=== PATIENT | female | born 1955 | race Caucasian/White ===

== ENCOUNTER → 2018-06-26 06:32 | Outpatient (CLI) | payer OTHER, SELFPAY ==
--- NOTE | 2018-06-26 | DI.MG.S_ITS ---
BILATERAL DIGITAL SCREENING MAMMOGRAM 3D/2D WITH CAD: 06/26/2018 CLINICAL: Routine screening. Family history of breast cancer. Comparison is made to exams dated: 05/12/2017 mammogram, 05/10/2016 mammogram, and 04/11/2015 mammogram - [facility]. There are scattered fibroglandular elements in both breasts. Current study was also evaluated with a Computer Aided Detection (CAD) system. No significant masses, calcifications, or other findings are seen in either breast. There has been no significant interval change. IMPRESSION: NEGATIVE There is no mammographic evidence of malignancy. A 1 year screening mammogram is recommended. This exam was interpreted at Station ID: [id number]. NOTE: For mammograms, a report in lay terms will be sent to the patient. Approximately 15% of breast malignancies will not be visualized mammographically. In the management of a palpable breast mass, a negative mammogram must not discourage biopsy of a clinically suspicious lesion. Electronically Signed By: Ana Cristina espinoza/ayanna:06/26/2018 08:59:49 letter sent: Normal Exam ACR BI-RADS Category 1: Negative 3341F
[2018-06-26 09:36] LABS: Cholesterol 236 mg/dL (140-199); Glucose 90 mg/dL (80-110); HDL Cholesterol 86 mg/dL (40-60); LDL Cholesterol Calculated 132 mg/dL (<100); Triglycerides 88 mg/dL (35-150)
== END ==
PROVIDERS: Visit Provider Family Medicine
DX: Z12.31 Encounter for screening mammogram for malignant neoplasm of breast (principal); Z80.3 Family history of malignant neoplasm of breast; Z13.220 Encounter for screening for lipoid disorders; Z13.1 Encounter for screening for diabetes mellitus
CPT/HCPCS: 36415; 77063; 77067; 80061; 82947

== ENCOUNTER → 2019-06-29 10:39 | Outpatient (CLI) | payer OTHER, SELFPAY ==
--- NOTE | 2019-06-29 | DI.MG.S_ITS ---
BILATERAL DIGITAL SCREENING MAMMOGRAM 3D/2D WITH CAD: 06/29/2019 CLINICAL: Routine screening. Family history of breast cancer. Comparison is made to exams dated: 06/26/2018 mammogram, 05/12/2017 mammogram, and 05/10/2016 mammogram - [facility]. There are scattered fibroglandular elements in both breasts. Current study was also evaluated with a Computer Aided Detection (CAD) system. No significant masses, calcifications, or other findings are seen in either breast. There has been no significant interval change. IMPRESSION: NEGATIVE There is no mammographic evidence of malignancy. A 1 year screening mammogram is recommended. This exam was interpreted at Station ID: [id number]. NOTE: For mammograms, a report in lay terms will be sent to the patient. Approximately 15% of breast malignancies will not be visualized mammographically. In the management of a palpable breast mass, a negative mammogram must not discourage biopsy of a clinically suspicious lesion. Electronically Signed By: Steven matthews/ayanna:06/29/2019 16:44:08 letter sent: Normal Exam ACR BI-RADS Category 1: Negative 3341F
== END ==
PROVIDERS: PCP Family Medicine; Visit Provider Family Medicine
DX: Z12.31 Encounter for screening mammogram for malignant neoplasm of breast (principal); Z80.3 Family history of malignant neoplasm of breast
CPT/HCPCS: 77063; 77067

== ENCOUNTER → 2020-08-18 10:48 | Outpatient (CLI) | payer OTHER, SELFPAY ==
--- NOTE | 2020-08-18 | DI.MG.S_ITS ---
BILATERAL DIGITAL SCREENING MAMMOGRAM 3D/2D WITH CAD: 08/18/2020 CLINICAL: Routine screening. Family history of breast cancer. Comparison is made to exams dated: 06/29/2019 mammogram, 06/26/2018 mammogram, and 05/12/2017 mammogram - [facility]. There are scattered fibroglandular elements in both breasts. Current study was also evaluated with a Computer Aided Detection (CAD) system. No significant masses, calcifications, or other findings are seen in either breast. There has been no significant interval change. Of note, there is suboptimal positioning in the bilateral craniocaudal projection(s) secondary to patient inability to be adequately positioned. However, the best possible images were obtained. IMPRESSION: NEGATIVE There is no mammographic evidence of malignancy. A 1 year screening mammogram is recommended. This exam was interpreted at Station ID: [id number]. NOTE: For mammograms, a report in lay terms will be sent to the patient. Approximately 15% of breast malignancies will not be visualized mammographically. In the management of a palpable breast mass, a negative mammogram must not discourage biopsy of a clinically suspicious lesion. Electronically Signed By: Steven Morales M.D. aty/:08/28/2020 11:03:58 letter sent: Normal Exam ACR BI-RADS Category 1: Negative 3341F
== END ==
PROVIDERS: PCP Family Medicine; Referring Provider Family Medicine; Visit Provider Family Medicine
DX: Z12.31 Encounter for screening mammogram for malignant neoplasm of breast (principal); Z80.3 Family history of malignant neoplasm of breast
CPT/HCPCS: 77063; 77067

== ENCOUNTER → 2021-04-19 07:04 | Outpatient (CLI) | payer OTHER, SELFPAY ==
[2021-04-19 08:48] LABS: Cholesterol 254 mg/dL (140-199); Glucose 104 mg/dL (80-110); HDL Cholesterol 80 mg/dL (40-60); LDL Cholesterol Calculated 159 mg/dL (<100); Triglycerides 75 mg/dL (35-150)
== END ==
PROVIDERS: PCP Family Medicine; Referring Provider Family Medicine; Visit Provider Family Medicine
DX: Z13.1 Encounter for screening for diabetes mellitus (principal); Z13.220 Encounter for screening for lipoid disorders
CPT/HCPCS: 36415; 80061; 82947

== ENCOUNTER → 2021-08-24 09:55 | Outpatient (CLI) | payer OTHER, SELFPAY ==
--- NOTE | 2021-08-24 | DI.MG.S_ITS ---
BILATERAL DIGITAL SCREENING MAMMOGRAM 3D/2D WITH CAD: 08/24/2021 CLINICAL: Routine screening. Family history of breast cancer. Comparison is made to exams dated: 08/18/2020 mammogram, 06/29/2019 mammogram, and 06/26/2018 mammogram - [facility]. There are scattered fibroglandular elements in both breasts. Current study was also evaluated with a Computer Aided Detection (CAD) system. No significant masses, calcifications, or other findings are seen in either breast. There has been no significant interval change. IMPRESSION: NEGATIVE There is no mammographic evidence of malignancy. A 1 year screening mammogram is recommended. This exam was interpreted at Station ID: [id number]. NOTE: For mammograms, a report in lay terms will be sent to the patient. Approximately 15% of breast malignancies will not be visualized mammographically. In the management of a palpable breast mass, a negative mammogram must not discourage biopsy of a clinically suspicious lesion. Electronically Signed By: Jose Luis Neal acr/penrad:08/24/2021 12:01:10 letter sent: Normal Exam ACR BI-RADS Category 1: Negative 3341F
== END ==
PROVIDERS: PCP Family Medicine; Referring Provider Family Medicine; Visit Provider Family Medicine
DX: Z12.31 Encounter for screening mammogram for malignant neoplasm of breast (principal)
CPT/HCPCS: 77063; 77067

== ENCOUNTER → 2022-08-26 08:14 | Outpatient (CLI) | payer MEDICARE, OTHER, SELFPAY ==
--- NOTE | 2022-08-26 | DI.MG.S_ITS ---
BILATERAL DIGITAL SCREENING MAMMOGRAM 3D/2D WITH CAD: 08/26/2022 CLINICAL: Routine screening. Family history of breast cancer. Comparison is made to exams dated: 08/24/2021 mammogram, 08/18/2020 mammogram, and 06/29/2019 mammogram - [facility]. There are scattered areas of fibroglandular density in both breasts (category b / 25%-50% glandular tissue). Current study was also evaluated with a Computer Aided Detection (CAD) system. No significant masses, calcifications, or other findings are seen in either breast. There has been no significant interval change. IMPRESSION: NEGATIVE There is no mammographic evidence of malignancy. A 1 year screening mammogram is recommended. Based on the Tyrer Cuzick model (a risk assessment model) the patient's lifetime risk is 7.0% and her 10 year risk is 3.4%. According to the ACR, ACS, and NCCN guidelines, an annual breast MRI exam along with mammogram is recommended if the patient's lifetime risk is 20% or greater. This exam was interpreted at Station ID: [id number]. NOTE: For mammograms, a report in lay terms will be sent to the patient. Approximately 15% of breast malignancies will not be visualized mammographically. In the management of a palpable breast mass, a negative mammogram must not discourage biopsy of a clinically suspicious lesion. Electronically Signed By: Ana Cristina espinoza/ayanna:08/26/2022 12:49:43 copy to: ROLANDO RAMIREZ letter sent: Normal Exam ACR BI-RADS Category 1: Negative 3341F
== END ==
PROVIDERS: PCP Nurse Practitioner; Referring Provider Family Medicine; Visit Provider Family Medicine
DX: Z12.31 Encounter for screening mammogram for malignant neoplasm of breast (principal); Z80.3 Family history of malignant neoplasm of breast
CPT/HCPCS: 77063; 77067

== ENCOUNTER → 2023-02-25 08:14 | Outpatient (CLI) | payer MEDICARE, OTHER, SELFPAY ==
[2023-02-25 10:07] LABS: Add Manual Diff / Slide Review NO; Basophils Absolute Auto 100 /uL (0-100); Eosinophils Absolute Auto 100 /uL (0-450); Eosinophils Percent Auto 2.2 % (2-4); Hematocrit 39.9 % (36-46); Hemoglobin 13.3 g/dL (12.0-16.0); Lymphocytes Absolute Auto 1500 /uL (1100-4500); Lymphocytes Percent Auto 26.4 % (25-40); Mean Corpuscular HGB Conc 33.3 % (30-36); Mean Corpuscular Hemoglobin 30.4 PG (26-34); Mean Corpuscular Volume 91.3 fL (80-100); Monocytes Absolute Auto 400 /uL (0-900); Monocytes Percent Auto 7.6 % (3-14); Neutrophils Absolute Auto 3500 /uL (1500-7000); Neutrophils Percent Auto 62.8 % (50-75); Platelet Count 289 X10^3/uL (150-400); Red Blood Cell Count 4.37 X10^6/uL (4.0-5.2); Red Cell Distribution Width 13.9 % (11.6-14.8); White Blood Cell Count 5.6 X10^3/uL (4.5-11.0)
[2023-02-25 11:09] LABS: Alanine Aminotransferase 16 IU/L (<35); Albumin 4.7 g/dL (3.5-5.0); Albumin Globulin Ratio 1.7 (1.0-2.8); Alkaline Phosphatase 61 U/L (38-126); Aspartate Aminotransferase 29 IU/L (14-36); BUN Creatinine Ratio 28.8 (6-22); Bilirubin Total 1.3 mg/dL (0.2-1.3); Blood Urea Nitrogen 19 mg/dL (7-17); Calcium 10.3 mg/dL (8.4-10.2); Carbon Dioxide 29 mmol/L (22-32); Chloride 99 mmol/L (98-107); Cholesterol 262 mg/dL (140-199); Estimated Glomerular Filt Rate > 60 mL/min (>60); Globulin 2.7 g/dL (1.7-4.1); Glucose 99 mg/dL (80-110); HDL Cholesterol 104 mg/dL (40-60); HEMOLYSIS < 15 (0-50); LDL Cholesterol Calculated 138 mg/dL (<100); Potassium 4.6 mmol/L (3.4-5.1); Sodium 136 mmol/L (137-145); Total Protein 7.4 g/dL (6.3-8.2); Triglycerides 100 mg/dL (35-150)
== END ==
PROVIDERS: PCP Nurse Practitioner; Referring Provider Family Medicine; Visit Provider Family Medicine
DX: E78.5 Hyperlipidemia, unspecified (principal); N89.8 Other specified noninflammatory disorders of vagina; Z79.899 Other long term (current) drug therapy; R73.9 Hyperglycemia, unspecified
CPT/HCPCS: 36415; 80053; 80061; 85025

== ENCOUNTER → 2023-08-28 09:02 | Outpatient (CLI) | payer MEDICARE, OTHER, SELFPAY ==
--- NOTE | 2023-08-28 | DI.MG.S_ITS ---
BILATERAL DIGITAL SCREENING MAMMOGRAM 3D/2D WITH CAD: 08/28/2023 CLINICAL: Routine screening. Family history of breast cancer. Comparison is made to exams dated: 08/26/2022 mammogram, 08/18/2020 mammogram, and 08/24/2021 mammogram - [facility]. There are scattered areas of fibroglandular density in both breasts (category b / 25%-50% glandular tissue). Current study was also evaluated with a Computer Aided Detection (CAD) system. No significant masses, calcifications, or other findings are seen in either breast. There has been no significant interval change. IMPRESSION: NEGATIVE There is no mammographic evidence of malignancy. A 1 year screening mammogram is recommended. Based on the Tyrer Cuzick model (a risk assessment model) the patient's lifetime risk is 6.7% and her 10 year risk is 3.4%. According to the ACR, ACS, and NCCN guidelines, an annual breast MRI exam along with mammogram is recommended if the patient's lifetime risk is 20% or greater. This exam was interpreted at Station ID: [id number]. NOTE: For mammograms, a report in lay terms will be sent to the patient. Approximately 15% of breast malignancies will not be visualized mammographically. In the management of a palpable breast mass, a negative mammogram must not discourage biopsy of a clinically suspicious lesion. Electronically Signed By: Ricky quinones/ayanna:08/28/2023 13:17:53 copy to: ROLANDO RAMIREZ letter sent: Normal Exam ACR BI-RADS Category 1: Negative 3341F
--- NOTE | 2023-08-28 09:36 | DI.RAD.S_ITS ---
Bone Density Report Name: SNEHA MESSER Age: 68 Sex: Female Ethnicity: White Date of : 1955 Indication: postmenopausal; screening for osteoporosis; Referring Provider: ROALNDO RAMIREZ Study: Bone densitometry was performed. Exam Date: August 28, 2023 Accession number: [id number] Bone Density: Region BMD T-score Z-score Classification AP Spine(L1, L3, L4) 0.762 -2.6 -0.8 Osteoporosis Femoral Neck (Left) 0.538 -2.8 -1.2 Osteoporosis Total Hip (Left) 0.668 -2.2 -0.9 Osteopenia Femoral Neck (Right) 0.560 -2.6 -1.0 Osteoporosis Total Hip (Right) 0.677 -2.2 -0.9 Osteopenia Total Hip Mean 0.673 -2.2 -0.9 Osteopenia World Health Organization criteria for BMD impression classify patients as: Normal (T-score at or above -1.0), Osteopenia (T-score between -1.0 and -2.5), or Osteoporosis (T-score at or below -2.5). 10-year Fracture Risk: FRAX not reported because: Some T-score for Spine Total or Hip Total or Femoral Neck at or below -2.5 Previous Exams: -- Region Exam Age BMD T-score BMD Change BMD Change Date g/cm2 vs Baseline vs Previous -- AP Spine (L1,L3-L4) 08/28/2023 68 0.762 -2.6 -0.253 (-24.9%)# -0.253 (-24.9%)# 05/11/2009 54 1.015 -0.3 Total Hip(Left) 08/28/2023 68 0.668 -2.2 -0.149 (-18.2%)# -0.149 (-18.2%)# 05/11/2009 54 0.818 -1.0 Total Hip(Right) 08/28/2023 68 0.677 -2.2 -0.142 (-17.4%)# -0.142 (-17.4%)# 05/11/2009 54 0.820 -1.0 -- *Denotes significance at 95% confidence level, LSC for AP Spine = 0.022 g/cm2, LSC for Total Hip = 0.027 g/cm2 # Denotes dissimilar scan types or analysis methods Impression: The patient has osteoporosis, based on the Left Femoral Neck T-score. No significant bone loss was observed. Discussion: INCREASED RISK OF FRACTURE. BONE DENSITY IS UNDESIRABLY LOW AT ONE OR MORE SKELETAL SITES, CONSISTENT WITH POSTMENOPAUSAL OSTEOPOROSIS. This patient's lowest T-score meets the World Health Organization's (WHO) criteria for osteoporosis at one or more sites (T-score -2.5 or below). In untreated patients, the risk of osteoporotic fracture increases approximately two-fold for each 1.0 SD decrease in T-score. Low bone density is not the only risk factor for fracture; also consider factors such as patient's age, frailty or poor health, risk of falling, risk of injury, previous osteoporotic fracture, family history of osteoporosis, cigarette smoking, low body weight, etc. Not everyone with low bone mineral density has osteoporosis; osteomalacia and other metabolic bone disorders should also be considered. Patients who have osteoporosis should be evaluated for specific diseases and conditions (secondary causes) that may cause or contribute to bone loss. The [place] [employer] Endocrinologists (AACE) and National Osteoporosis Foundation (NOF) recommend pharmacologic intervention for all postmenopausal women whose T-score is in this range. The patient should follow a healthful lifestyle (good nutrition with adequate calcium and vitamin D, and appropriate weight-bearing exercise). Follow-Up: Consider a repeat BMD and Vertebral Fracture Assessment (VFA) exam in 2 years or sooner if medically necessary, to reassess this patient's status. Reported by: GAYLE MESA M.D. on 08/28/2023 12:56:00 PM.
== END ==
LOC: MAMMO 09:02
PROVIDERS: PCP Nurse Practitioner; Referring Provider Nurse Practitioner; Visit Provider Nurse Practitioner
DX: Z12.31 Encounter for screening mammogram for malignant neoplasm of breast (principal); R92.323 Mammographic fibroglandular density, bilateral breasts; Z80.3 Family history of malignant neoplasm of breast; M81.0 Age-related osteoporosis without current pathological fracture
CPT/HCPCS: 77063; 77067; 77080

== ENCOUNTER → 2023-11-17 11:50 | Outpatient (CLI) | payer MEDICARE, OTHER, SELFPAY ==
[2023-11-17 14:27] LABS: BUN Creatinine Ratio 26.5 (6-22); Blood Urea Nitrogen 22 mg/dL (7-17); Calcium 9.5 mg/dL (8.4-10.2); Carbon Dioxide 30 mmol/L (22-32); Chloride 102 mmol/L (98-107); Estimated Glomerular Filt Rate > 60 mL/min (>60); Glucose 102 mg/dL (80-110); HEMOLYSIS < 15 (0-50); Sodium 136 mmol/L (137-145)
[2023-11-17 17:58] LABS: Vitamin D 25 Hydroxy (D3) 58.9 ng/mL (30.0-100.0)
[2023-11-20 14:09] LABS: Calcium 9.6 mg/dL (8.7-10.3); Parathyroid Hormone, Intact 51 pg/mL (15-65)
== END ==
PROVIDERS: PCP Nurse Practitioner; Referring Provider Nurse Practitioner; Visit Provider Nurse Practitioner
DX: M81.0 Age-related osteoporosis without current pathological fracture (principal)
CPT/HCPCS: 36415; 80048; 82306; 82310; 83970

== ENCOUNTER → 2024-03-10 06:38 | Outpatient (CLI) | payer MEDICARE, OTHER, SELFPAY ==
[2024-03-10 08:21] LABS: Alanine Aminotransferase 18 IU/L (<35); Albumin 4.3 g/dL (3.5-5.0); Albumin Globulin Ratio 1.4 (1.0-2.8); Alkaline Phosphatase 46 U/L (38-126); Aspartate Aminotransferase 32 IU/L (14-36); BUN Creatinine Ratio 36.9 (6-22); Bilirubin Total 1.1 mg/dL (0.2-1.3); Blood Urea Nitrogen 24 mg/dL (7-17); Carbon Dioxide 30 mmol/L (22-32); Chloride 101 mmol/L (98-107); Cholesterol 247 mg/dL (140-199); Estimated Glomerular Filt Rate > 60 mL/min (>60); Globulin 3.1 g/dL (1.7-4.1); Glucose 102 mg/dL (80-110); HDL Cholesterol 92 mg/dL (40-60); HEMOLYSIS < 15 (0-50); LDL Cholesterol Calculated 139 mg/dL (<100); Potassium 4.5 mmol/L (3.4-5.1); Sodium 136 mmol/L (137-145); Total Protein 7.4 g/dL (6.3-8.2); Triglycerides 81 mg/dL (35-150)
[2024-03-10 08:38] LABS: Free T3, Triiodothyronine Free 4.18 pg/mL (2.77-5.27)
[2024-03-10 08:52] LABS: Thyroid Stimulating Hormone 0.601 uIU/mL (0.47-4.68)
[2024-03-11 16:37] LABS: Hep C Virus Ab w/Reflex Quant REACTIVE s/c (NEGATIVE)
== END ==
PROVIDERS: PCP Nurse Practitioner Family; Referring Provider Nurse Practitioner; Visit Provider Nurse Practitioner
DX: R79.9 Abnormal finding of blood chemistry, unspecified (principal); E83.52 Hypercalcemia; Z12.11 Encounter for screening for malignant neoplasm of colon; E87.1 Hypo-osmolality and hyponatremia; E78.00 Pure hypercholesterolemia, unspecified
CPT/HCPCS: 36415; 80053; 80061; 84439; 84443; 84481; 86803; 87522

== ENCOUNTER 2024-04-15 07:32 | Day surgery (SDC) | payer MEDICARE, OTHER, SELFPAY ==
--- NOTE | 2024-04-15 | PATH_ITS ---
[facility] Accession Number: [id number] No. of containers..01 Tissue . 01 Material submitted: . colon - ASCENDING POLYPS . 01 Diagnosis: ASCENDING POLYPS: 1. Tubular adenoma. 2. Colonic mucosa with benign lymphoid aggregate. STO 04/20/2024 1413 Local . 01 Electronically signed: . Jaswant Davis MD, Pathologist NPI- [id number] . 01 Gross description: . Received in formalin with two patient identifiers and ascending polyps, are two gastelum soft tissue fragments, both measuring 0.4 cm in greatest dimension, submitted in A1. ([id number]) /MRV 04/20/2024 1413 Local . 01 Pathologist provided ICD-10: D12.2 . 01 CPT . 539860 Specimen Comment: A courtesy copy of this report has been sent to [phone] Performed at: [address] [id number] MD Jaswant Davis MD Phone: [phone]
[2024-04-15 07:58] VITALS: BP 138/85; PULSE 101; RESP 16; TEMP 36.7; O2SAT 100
--- NOTE | 2024-04-15 08:27 | PM.OP.COLON ---
Operative Date/Time/Diagnoses Date of procedure: 04/15/24 Time of procedure: 08:51 Pre-op diagnosis: Colon cancer screening Post-op diagnosis: same Procedure & Clinicians Study performed: Colonoscopy Same procedure as scheduled: Yes Surgeon: Yoel Nguyễn Procedure Notes Procedure in detail: Surgeon: Yoel Nguyễn MD Anesthesia: Amna Joyner CUSTOMER SERVICE SPECIALIST Procedure: The patient was brought to the endoscopy suite, placed in left lateral decubitus position. The patient was connected to monitoring devices. A time-out was performed. Sedation was administered. Once the patient was adequately sedated, a digital rectal exam was performed and was normal. The scope was then inserted and advanced to the cecum where the appendiceal orifice was identified and photographed. The scope was then slowly withdrawn over greater than 6 minutes. The mucosa was thoroughly inspected. There were 2 small polyps in the ascending colon removed with the Jumbo forceps and sent together as ?ascending colon polyps?. There were some rare diverticula in the descending colon and sigmoid colon. The scope was retroflexed in the rectum. No other abnormalities were identified. The scope was straightened and removed. The patient was awakened and brought to recovery. Scope withdrawal time: 6 minutes Sedation time: 10 minutes EBL: 2 mL Findings: 2 small polyps in the ascending colon and rare descending and sigmoid diverticula Post-procedure Disposition: PACU
--- NOTE | 2024-04-15 08:28 | P.HP_ITS ---
History of Present Illness History of Present Illness Date Patient Seen: 04/15/24 Time Patient Seen: 08:28 Chief complaint: Screening Colonoscopy Narrative: [place] is a 69-year-old woman who presents for colonoscopy. Her last was in 2022 and was normal. [facility] Medical History Post-menopause Osteoporosis Anxiety Hypercholesterolemia Mumps (~1968) Measles (~1968) Chicken pox Vaginal atrophy Abnormal Pap smear of cervix (~2010) Surgical History Status post colonoscopy (~2012) History of tonsillectomy (~1959) Family History Father Age: 92 Hypertension High cholesterol Mother Age: 89 Lupus Congestive heart failure Autoimmune disorder Social History Smoking Status: Never smoker alcohol intake: current Meds Home Medications and Allergies Home Medications Medication Instructions Recorded Confirmed Type estradiol 0.01% (0.1 mg/gram) 1 g vaginal 2XW #42.5 grams 06/30/23 04/15/24 Rx vaginal cream bupropion HCl 150 mg 24 hr tablet, 150 mg PO QAM #90 tabs 07/31/23 04/15/24 Rx extended release denosumab 60 mg/mL subcutaneous 60 mg SUBCUT [id number] #1 mL 10/21/23 04/15/24 Rx syringe (Prolia) Allergies Allergy/AdvReac Type Severity Reaction Status Date / Time No Known Drug Allergies Allergy Verified 04/15/24 07:56 Exam Vital Signs (past 8 hours): - 04/15/24 07:58 Temperature 98.0 F Pulse Rate 101 H Respiratory Rate 16 Blood Pressure 138/85 Pulse Oximetry 100 Oxygen Delivery Method Room Air Oxygen Delivery Method Room Air Const General: healthy appearing Assessment & Plan Assessment and plan (1) Colon cancer screening: Status: Acute Plan Colonoscopy Time-Based Coding :: [TOTAL MINUTES] spent with patient and on the chart (including review of chart, obtaining history, exam, reviewing outside data, placing orders, documenting exam and treatment plan, and counseling patient) on [DATE].
[2024-04-15 08:48] VITALS: BP 104/63; PULSE 87; RESP 18; TEMP 36.7; O2SAT 98
[2024-04-15 08:54] VITALS: BP 104/63; PULSE 86; RESP 16; O2SAT 98
[2024-04-15 08:58] VITALS: BP 104/65; PULSE 82; RESP 13; TEMP 36.7; O2SAT 100
[2024-04-15 09:05] VITALS: BP 118/75; PULSE 85; RESP 17; TEMP 36.7; O2SAT 99
== END 2024-04-15 09:17 | disposition home or self-care (01) ==
PROVIDERS: PCP Nurse Practitioner Family; Referring Provider Surgery; Visit Provider Surgery
PROC: 0DJD8ZZ Inspection of Lower Intestinal Tract, Via Natural or Artificial Opening Endoscopic (ICD-10-PCS; CPT 45378; principal; 2024-04-15 08:45)
DX: Z12.11 Encounter for screening for malignant neoplasm of colon (principal); K57.30 Diverticulosis of large intestine without perforation or abscess without bleeding; D12.2 Benign neoplasm of ascending colon
CPT/HCPCS: 45380; J2704